=== PATIENT | female | born 1945 | race Caucasian/White ===

== ENCOUNTER → 2023-09-27 | Outpatient (CLI) | payer OTHER, SELFPAY ==
--- NOTE | 2023-09-27 07:47 | CDU_ITS ---
Reason For Study: Lt Carotid Stenosis Rt. Velocities/BP Lt. Velocities/BP Prox CCA 84.2/20.4 cm/sec. Prox CCA 81.5/19.4 cm/sec. Mid CCA 80.6/17.9 cm/sec. Mid CCA 83.3/24.8 cm/sec. Dist CCA 65.8/17.9 cm/sec. Dist CCA 76.0/17.5 cm/sec. Prox ICA 81.8/22.8 cm/sec. Prox ICA 154.5/43.1 cm/sec. Mid ICA 85.5/22.8 cm/sec. Mid ICA 147.2/35.8 cm/sec. Dist ICA 102.0/29.7 cm/sec. Dist ICA 139.9/26.7 cm/sec. Rt. ICA/CCA = 1.3. Lt. ICA/CCA = 1.9. Prox ECA 155.0/5.7 cm/sec. Prox ECA 88.8/10.2 cm/sec. Rt. Vert. 83.3/15.7 cm/sec. Lt. Vert. 62.0/11.9 cm/sec. Right Extracranial There is homogeneous, smooth atherosclerotic plaque noted in the right common carotid artery. There is heterogeneous, irregular atherosclerotic plaque noted in the right internal carotid artery. There is heterogeneous, irregular atherosclerotic plaque noted in the right external carotid artery. Antegrade flow is noted in the right vertebral artery. Left Extracranial There is homogeneous, smooth atherosclerotic plaque noted in the left common carotid artery. There is heterogeneous, irregular atherosclerotic plaque noted in the left internal carotid artery. There is heterogeneous, irregular atherosclerotic plaque noted in the left external carotid artery. Antegrade flow is noted in the left vertebral artery. Procedure Carotid Duplex [id number]. This is a Carotid Duplex examination using B-mode, color flow and specral Doppler. The exam was diagnostic. Exam performed in department. VL/Carotid Duplex Ultrasound Interpretation Summary Mild (<50%) stenosis right extracranial internal carotid. Moderate (50-69%) stenosis left extracranial internal carotid. Patent and antegrade vertebrals bilaterally. Ordering Physician: Alyssa Monae Referring Physician: Alyssa Monae Performed By: Antonio Pugh RVT
--- NOTE | 2023-09-27 08:31 | BI_ITS ---
MAMMOGRAPHY - BILATERAL SCREENING REASON FOR EXAM: Female, 77 years old. Routine annual screening examination. PERTINENT HISTORY: Aunt with breast cancer. TECHNIQUE: Digital bilateral breast skyler (3D mammographic acquisition) in the CC and MLO projections. 2-D mediolateral oblique (MLO) and craniocaudad (CC) views of both breasts were obtained. CAD: Full Field Digital Mammography with Computer Added Detection was performed. COMPARISON: Comparison is made with prior study dated July 15, 2010. FINDINGS: Breast Composition: There are scattered areas of fibroglandular density. There are no dominant masses or suspicious calcifications. No other significant abnormalities are identified. There has been no significant change since the prior study. BI/SCRN MAMM (CAD)W/SKYLER BILAT IMPRESSION: Stable bilateral screening mammogram. Yearly follow-up mammogram recommended. (A) ASSESSMENT CATEGORY: BIRADS Category 1: Negative. A letter regarding these results will be sent to the patient by the facility within 30 days. Approximately 10% of breast cancers are not detected by mammography. A normal mammogram should not delay biopsy of a clinically suspicious abnormality. [id number] Electronically Signed: John Pires MD at 9:53 EDT ,
--- NOTE | 2023-09-27 08:40 | BD_ITS ---
STUDY: DUAL ENERGY X-RAY ABSORPTIOMETRY / DXA REASON FOR EXAM: Female, 77 years old. M810 TECHNIQUE: Bone Mineral Density (BMD) measurements of lumbar spine and bilateral hips were obtained. COMPARISON: Comparison is made with prior study dated August 04, 2010. FINDINGS: Lumbar Spine (L1-L4): g/cm2 (0.682) / T-score (-3.1) / Z-score (-0.6) Findings are suggestive of osteoporosis with a high fracture risk. Left Femur Total: g/cm2 (0.687) / T-score (-2.1) / Z-score (-0.2) Left Femoral Neck: g/cm2 (0.510) / T-score (-3.1) / Z-score (-0.9) Right Femur Total: g/cm2 (0.676) / T-score (-2.2) / Z-score (-0.3) Right Femoral Neck: g/cm2 (0.488) / T-score (-3.3) / Z-score (-1.1) The T-Scores on the most recent prior examination were: Lumbar Spine (L1-L4): There has been worsening of bone density since the previous examination. Left Femur Total: which represents a worsening of 9.7%. Right Femur Total: which represents a worsening of 7.3%. BD/Dexa Bone Density Study IMPRESSION: The patient is considered osteoporotic as outlined below according to World [employer] Organization (WHO) criteria with a high fracture risk. There has been worsening of bone density since the previous examination. Reference Information: The T-score is the number of standard deviations above or below the standard which is normal for young adults at their peak bone mineral density. The World Health Organization (WHO) interprets the T-scores as follows: Above -1 Normal bone density Between -1 and -2.5 Osteopenia Equal to / or below -2.5 Osteoporosis As a practical clinical guideline, osteopenia may be graded as follows: Mild -1 through -1.5 Moderate -1.6 through -2.0 Severe -2.1 through -2.4 The Z-score is the number of standard deviations above or below age-matched controls. A Z-score of less than -1.5 would be considered abnormal. References: 1. NIH Osteoporosis and Related Bone Diseases www osteo.org 2. International Society for Clinical Densitometry www iscd.org 3. National Osteoporosis Foundation www nof.org Electronically Signed: John Pires MD at 15:00 EDT ,
== END | disposition home or self-care (01) ==
PROVIDERS: PCP Internal Medicine; Referring Provider Internal Medicine; Visit Provider Internal Medicine
DX: Z12.31 Encounter for screening mammogram for malignant neoplasm of breast (principal); M81.0 Age-related osteoporosis without current pathological fracture; I65.29 Occlusion and stenosis of unspecified carotid artery
CPT/HCPCS: 77063; 77067; 77080; 93880

== ENCOUNTER → 2024-09-29 | Outpatient (CLI) | payer MEDICARE, OTHER, SELFPAY ==
--- NOTE | 2024-09-29 11:49 | BI_ITS ---
EXAM: SCRN MAMM (CAD)W/SKYLER BILAT DATE: 09/29/2024 CLINICAL HISTORY: F, Age 78 y/o , SCRN MAMM (CAD)W/SKYLER BILAT TECHNIQUE: SCRN MAMM (CAD)W/SKYLER BILAT COMPARISON: Prior exam(s) dated 09/27/2023. FINDINGS: TISSUE DENSITY: There are scattered areas of fibroglandular density. Bilateral Breast Mammographic Findings: At benign vascular calcifications and round microcalcifications are seen in both breasts. No suspicious cluster indications, architectural distortion or secondary signs of malignancy identified in either breast. Stable nodular masslike densities are seen in both breasts. 2 stable partially obscured 2 mm isodense masses are seen in the superior outer aspect of the left breast. BI/SCRN MAMM (CAD)W/SKYLER BILAT IMPRESSION: Benign screening mammogram OVERALL FINAL ASSESSMENT BI-RADS 2: BENIGN RECOMMENDATION: Routine annual follow-up in 1 Year A letter with findings and recommendations will be mailed to the patient. Reading Location: [id number]
== END | disposition home or self-care (01) ==
PROVIDERS: PCP Internal Medicine; Referring Provider Internal Medicine; Visit Provider Internal Medicine
DX: Z12.31 Encounter for screening mammogram for malignant neoplasm of breast (principal)
CPT/HCPCS: 77063; 77067

== ENCOUNTER → 2024-10-16 | Outpatient (CLI) | payer MEDICARE, OTHER, SELFPAY ==
--- NOTE | 2024-10-16 09:16 | US_ITS ---
PROCEDURE: BREAST LIMITED UNILATERAL 10/16/2024 REASON FOR EXAM: F, Age 78 y/o , US OF LEFT BREAST - 2 MASSES SEEN ON SUPERIOR OUT ASPECT OF LEFT COMPARISON: Prior mammogram dated September 29, 2024.. TECHNIQUE: BREAST LIMITED UNILATERAL. The lateral aspect of the left breast was examined with ultrasound. FINDINGS: Dense fibroglandular tissue. No sonographic abnormality is seen. US/Breast Limited Unilateral IMPRESSION: No sonographic abnormality is seen. BI-RADS 1: NEGATIVE RECOMMENDATION: Routine annual follow-up in 1 Year Reading Location: [id number]
== END | disposition home or self-care (01) ==
LOC: OPUS 09:15
PROVIDERS: PCP Internal Medicine; Referring Provider Internal Medicine; Visit Provider Internal Medicine
DX: N63.21 Unspecified lump in the left breast, upper outer quadrant (principal)
CPT/HCPCS: 76642